=== PATIENT | female | born 1950 | race Two or more races ===

== ENCOUNTER 2025-03-06 16:01 | Emergency (ER) | payer OTHER ==
[~2025-03-06] VITALS: Ht 157.5 cm; Wt 77.0 kg
[2025-03-06 16:03] VITALS: TEMP 98.1
[2025-03-06 17:21] LABS: Urine Protein, UAD Negative (Negative)
[2025-03-06] MEDS ORDERED: BACDST PO (18:40)
--- NOTE | 2025-03-06 18:45 | ED.PDOC ---
General HPI Comments 74-year-old female presents to the ED chief complaint burning with urination x2 days. Patient reports suprapubic pain 6/10 pressure type pain. Denies flank pain. Denies fever, chills, nausea, vomiting, chest pain, abdominal pain, shortness of breath. Chief Complaint: Urinary Time Seen by MD: 18:12 Reviewed notes: Nurses Notes, Medications, Allergies Allergies: Coded Allergies: NO KNOWN ALLERGIES (Unverified , 03/06/25) Information Source: Patient Mode of Arrival: Ambulatory Past Medical History PAST MEDICAL HISTORY: Denies Surgical History: Denies all surgeries MANAGER CASE MANAGEMENT History: No Pertinent MANAGER CASE MANAGEMENT History Family History Family History: Unknown Social History Smoker: Non-Smoker Alcohol: Denies ETOH Use Drugs: Denies Drug Use All Other Systems: Reviewed and Negative (See HPI) Physical Exam General Appearance: No Apparent Distress, Normal HEENT: Pharynx Normal Neck: Full Range of Motion, Non-Tender Respiratory: Lungs Clear, No Respiratory Distress, Normal Breath Sounds Cardiovascular: No Edema, No JVD, No Murmur, No Gallop, Normal Peripheral Pulses, Regular Rate/Rhythm Breast Exam: Deferred Gastrointestinal: No Organomegaly, Non Tender, No Pulsatile Mass, Normal Bowel Sounds, Soft, Suprapubic (Tenderness on palpation negative CVA tenderness) Genitalia: Deferred Pelvic: Deferred Rectal: Deferred Extremities: Normal range of motion Musculoskeletal : Apperance: Normal Neurologic: Alert, No Motor Deficits, Normal Affect, Normal Mood, No Sensory Deficits Cerebellar Function: Normal Reflexes: NOT DONE Skin: Dry, Normal Color, Warm Lymphatic: No Adenopathy Was a procedure done? Was a procedure done?: No Differential Diagnosis Kidney stone (Female): Pyelonephritis, Strain, Urinary obstruction, Urolithiasis Urinary Problem (Female): UTI X-Ray, Labs, Meds, VS Vital Signs Date Time Temp Pulse Resp B/P (MAP) Pulse Ox O2 Delivery O2 Flow Rate FiO2 03/06/25 16:03 98.1 78 18 153/78 98 98.1 Lab Test 03/06/25 16:33 Range/Units Urine Color Light-yellow Yellow Urine Clarity Turbid H Clear Urine pH 5.5 5.0-9.0 Urine Specific [place] 1.016 1.001-1.035 Urine Protein Negative Negative Urine Ketones Negative Negative Urine Blood 1+ H Negative /uL Urine Nitrite Negative Negative Urine Bilirubin Negative Negative Urine Urobilinogen Normal Negative mg/dL Urine Leukocyte Esterase 3+ Negative /uL Urine RBC 10 0 - 4 /hpf Urine Microscopic WBC 324 H 0-5 /HPF Urine Squamous Epithelial Cells Few <5 /hpf Urine Bacteria Few H None Seen /hpf Urine Glucose Normal Normal mg/dL X-Ray, Labs, Meds, VS Comment Script trial of antibiotics. UA positive for infection Advised to take medication as prescribed side effects discussed. Advised to follow up with his PCP in two days, urgent care, or back in the ER for no improvement in increasing symptoms Patient was also advised to return to the ER for increasing pain,. ptient indicates understanding and agrees with discharge plan of care. Time of 1ST Reevaluation: 18:12 Reevaluation 1ST: Unchanged Time of 2ND Reevaluation: 18:40 Reevaluation 2ND: Improved Patient Education/Counseling: Diagnosis, Treatment, Need For Follow Up Family Education/Counseling: No Family Present SEPSIS Sepsis Screen Date sepsis recognized/suspect: Mar 06, 2025 Time Sepsis recognized/suspect: 1604 Recent Procedure: No On Antibiotic Therapy: No Respiratory Rate >20: No Heart Rate >90: No Temp<36 C (96.8 F) or >38.3 C: No SBP <90 or MAP <65 mmHG: No New Acute Mental Status Change: No Is the patient on CPAP, BIPAP,: No Physician Orders Ceftriaxone Sodium (Rocephin) (03/06/25 18:45) Ketorolac Injection (Toradol Injection) (03/06/25 18:45) Vital Signs Date Time Temp Pulse Resp B/P (MAP) Pulse Ox O2 Delivery O2 Flow Rate FiO2 03/06/25 16:03 98.1 78 18 153/78 98 98.1 Departure 1 Departure Time of Disposition: 18:39 Impression: Primary Impression: Cystitis with hematuria Disposition: 01 HOME / SELF CARE / HOMELESS Condition: Stable e-Prescriptions Sulfamethoxazole W/Trimethopri (Bactrim Ds Tablet) 1 Tab Tb 1 TAB PO BID for 5 Days, #10 TAB Prov: BARTOLO MCCALLUM 03/06/25 Discharged With: Self Critical Care Note Critical Care Time?: No Stability Stability form required: BARTOLO Heard Mar 06, 2025 18:45
[2025-03-06] MEDS: KETOROLAC TROMETH 60MG/2ML VIAL IM ONE (18:51)
[2025-03-06] MEDS: cefTRIAXone SOD 1,000 MG VL IM ONE (18:52)
[2025-03-06 19:27] VITALS: BP 148/72; PULSE 67; RESP 18; O2SAT 98
== END 2025-03-06 19:28 | disposition home or self-care (01) ==
LOC: ER 16:01
DX: N30.91 Cystitis, unspecified with hematuria (principal); Z79.899 Other long term (current) drug therapy
CPT/HCPCS: 81001; 96372; 99284; J0696; J1885